=== PATIENT | female | born 1950 | race African-American/Black ===

== ENCOUNTER 2016-11-19 15:00 | Outpatient (RCR) | payer BC | END 2016-12-15 | disposition home or self-care (01) | LOC: PTY 15:00 | DX: R53.81 Other malaise (principal); C16.9 Malignant neoplasm of stomach, unspecified; Z91.81 History of falling ==

== ENCOUNTER 2016-12-20 15:12 | Outpatient (RCR) | payer BC | END 2017-01-15 | disposition home or self-care (01) | LOC: PTY 15:12 | DX: R53.81 Other malaise (principal); C16.9 Malignant neoplasm of stomach, unspecified; M19.90 Unspecified osteoarthritis, unspecified site ==